=== PATIENT | female | born 1955 | race American Indian/Alaskan Native ===

== ENCOUNTER 2022-03-18 14:12 | Emergency (ER) | payer MEDICARE ==
--- NOTE | 2022-03-18 16:37 | XRay Report ---
XR knee 3V LT INDICATION / CLINICAL INFORMATION: PAIN SP FALL COMPARISON: None available. FINDINGS: BONES / JOINT(S): No acute fracture or subluxation. No significant arthritis. No significant joint ef fusion. SOFT TISSUES: No significant abnormality. ADDITIONAL FINDINGS: None. IMPRESSION: No acute osseous findings in the left knee. Signer Name: Tayo Johnson MD Signed: 03/18/2022 4:32 PM Workstation Name: [id number]
--- NOTE | 2022-03-18 17:02 | Emergency Department Report ---
ED Fall HPI - General Chief Complaint: Fall Stated Complaint: FELL/SHARP PAIN IN LEGS AND BACK Time Seen by Provider: 03/18/22 16:05 Source: patient Mode of arrival: Ambulatory - History of Present Illness Initial Comments: 66 YO COMES TO ER SP FALLING AT THE BANK CO L KNEE PAIN AMBULATORY ALSO CO BILATERAL ARM PAIN- SHOULDER AREA SHE GRABBED COUNTER TO BREAK FALL MECHANICAL FALL NO PRODROME OF SYMPTOMS NO DOWN TIME DROVE SELF TO ER MD Complaint: fall - Related Data Previous Rx's Medication Instructions Recorded Last Taken Type Ibuprofen [Motrin] 800 mg PO Q8HR PRN #30 tablet 03/18/22 Unknown Rx Allergies Allergy/AdvReac Type Severity Reaction Status Date / Time No Known Allergies Allergy Verified 03/18/22 15:13 ED Review of Systems ROS: Stated complaint: FELL/SHARP PAIN IN LEGS AND BACK Other details as noted in HPI Comment: All other systems reviewed and negative ED Past Medical Hx - Past Medical History Previous Medical History?: Yes Additional medical history: CATARACTS - Surgical History Past Surgical History?: No Additional Surgical History: Hysterectomy - Family History Family history: no significant - Social History Smoking Status: Current Every Day Smoker Substance Use Type: Alcohol - Medications Home Medications: Home Medications Medication Instructions Recorded Confirmed Last Taken Type Ibuprofen [Motrin] 800 mg PO Q8HR PRN #30 tablet 03/18/22 Unknown Rx ED Physical Exam - General Limitations: No Limitations General appearance: alert, in no apparent distress - Head Head exam: Present: atraumatic, normocephalic - Eye Eye exam: Present: normal appearance - ENT ENT exam: Present: mucous membranes moist - Neck Neck exam: Present: normal inspection - Respiratory Respiratory exam: Present: normal lung sounds bilaterally. Absent: respiratory distress - Cardiovascular Cardiovascular Exam: Present: regular rate, normal rhythm. Absent: systolic murmur, diastolic murmur, rubs, gallop - GI/Abdominal GI/Abdominal exam: Present: soft, normal bowel sounds - Extremities Exam Extremities exam: Present: normal inspection - Back Exam Back exam: Present: normal inspection - Neurological Exam Neurological exam: Present: alert, oriented X3 - Psychiatric Psychiatric exam: Present: normal affect, normal mood - Skin Skin exam: Present: warm, dry, intact, normal color. Absent: rash ED Course Vital Signs 03/18/22 15:11 Temperature 98.5 F Pulse Rate 75 Respiratory 18 Rate Blood Pressure 138/76 [Left] O2 Sat by Pulse 99 Oximetry ED Medical Decision Making - Radiology Data Radiology results: report reviewed, image reviewed NAP - Medical Decision Making Vital Signs 03/18/22 15:11 Temperature 98.5 F Pulse Rate 75 Respiratory 18 Rate Blood Pressure 138/76 [Left] O2 Sat by Pulse 99 Oximetry MEDICATED WITH MOTRIN FOR PAIN AMBULATORY NEUROVASC INTACT XRAY NA DC HOME WITH DC PLAN OF CARE INCLUDING DIET, MEDS, ACTIVITY AND FOLLOW UP SHE VERBALIZES UNDERSTANDING OF PLAN OF CARE - Differential Diagnosis RO FX Critical care attestation.: If time is entered above; I have spent that time in minutes in the direct care of this critically ill patient, excluding procedure time. ED Disposition Clinical Impression: Fall, Contusion Disposition: HOME / SELF CARE / HOMELESS Is pt being admited?: No Does the pt Need Aspirin: No Condition: Stable Instructions: Contusion Additional Instructions: REST ICE ELEVATE YOUR LEG TONIGHT EXPECT TO BE SORE FOR A COUPLE DAYS FOLLOW UP WITH PCP NEXT WEEK IF STILL SORE MED TODAY FOR PAIN NEEDED TAKE WITH FOOD Referrals: DAREK LILLY MD [Staff Physician] - 3-5 Days Forms: Work/School Release Form(ED) Time of Disposition: 17:09
[2022-03-18] MEDS ORDERED: IBUPROFEN 800 MG TAB PO ONE (17:08)
[2022-03-18 17:32] VITALS: BP 136/68
== END 2022-03-18 17:30 | disposition home or self-care (01) ==
LOC: ED 14:12
DX: S80.02XA Contusion of left knee, initial encounter (principal); W19.XXXA Unspecified fall, initial encounter; Y93.89 Activity, other specified; Y92.89 Other specified places as the place of occurrence of the external cause; Y99.8 Other external cause status
CPT/HCPCS: 99283